=== PATIENT | female | born 1975 | race American Indian/Alaskan Native ===

== ENCOUNTER 2017-05-01 18:04 | Emergency (ER) | payer BC ==
[2017-05-01 19:15] LABS: Basophils % (Auto) 0.3 % (0.0-1.8); Eosinophils % (Auto) 0.8 % (0.0-4.3); Hemoglobin 12.4 gm/dl (10.1-14.3); Mean Corpuscular HGB Conc 34 % (30-34); Mean Corpuscular Hemoglobin 32 pg (28-32); Mean Corpuscular Volume 96 fl (79-97); Platelet Count 245 K/mm3 (140-440); Red Blood Count 3.85 M/mm3 (3.65-5.03); Red Cell Distribution Width 13.4 % (13.2-15.2); White Blood Count 5.6 K/mm3 (4.5-11.0)
[2017-05-01 19:32] LABS: BUN/Creatinine Ratio 14.28; Blood Urea Nitrogen 10 mg/dL (7-17); Calcium 8.9 mg/dL (8.4-10.2); Carbon Dioxide 23 mmol/L (22-30); Chloride 99.1 mmol/L (98-107); Glucose 82 mg/dL (65-100); Potassium 3.7 mmol/L (3.6-5.0); Sodium 136 mmol/L (137-145)
[2017-05-01 19:33] LABS: Anion Gap 18 mmol/L
[2017-05-02] MEDS ORDERED: TYLENOL PO ONE (03:13)
[2017-05-02] MEDS ORDERED: TYLENOL ONE (03:18)
[2017-05-02 05:39] VITALS: BP 111/56
--- NOTE | 2017-05-02 06:16 | Emergency Department Report ---
ED General Adult HPI - General Chief complaint: Fever Stated complaint: COUGH,CHILLS/BODY ACHES Time Seen by Provider: 05/02/17 06:14 Source: patient, RN notes reviewed Mode of arrival: Ambulatory Limitations: No Limitations - History of Present Illness Initial comments: This is a 41-year-old female who was previously unknown to this provider. She has a history of tobacco consumption, does not have a local primary care doctor , and reports that she is not . She presents to the ER with cough, mucus production, generalized body aches for the past 2 weeks, she reports his symptoms have been present since April 13. No recent travel, no recent antibiotic use, positive sick contacts at home and her son, and in family members. No abdominal pain, no irritative or obstructive urinary symptoms. -: Gradual Location: back, left, right, upper extremity, lower extremity Severity scale (0 -10): 10 Quality: aching Consistency: intermittent Improves with: none Worsens with: none Associated Symptoms: cough, fever/chills, loss of appetite, malaise - Related Data Previous Rx's Medication Instructions Recorded Last Taken Type Albuterol Sulfate [Proair 90 mcg IH Q4HR PRN #2 aer.pow.ba 05/02/17 Unknown Rx Respiclick] Azithromycin [Zithromax TAB] 250 mg PO QDAY #6 tablet 05/02/17 Unknown Rx Benzonatate [Tessalon Perles] 100 mg PO Q8HR PRN #30 capsule 05/02/17 Unknown Rx Ibuprofen [Motrin] 600 mg PO Q8H PRN #30 tablet 05/02/17 Unknown Rx Allergies Allergy/AdvReac Type Severity Reaction Status Date / Time No Known Allergies Allergy Verified 05/01/17 18:39 ED Review of Systems ROS: Stated complaint: COUGH,CHILLS/BODY ACHES Other details as noted in HPI Constitutional: fever, malaise Eyes: denies: vision change ENT: denies: epistaxis Respiratory: cough Cardiovascular: denies: palpitations Gastrointestinal: denies: vomiting Genitourinary: denies: dysuria Musculoskeletal: back pain, arthralgia, myalgia Skin: denies: lesions Neurological: weakness ED Past Medical Hx - Past Medical History Previous Medical History?: No - Surgical History Past Surgical History?: Yes Additional Surgical History: C sections - Social History Smoking Status: Current Every Day Smoker Substance Use Type: None - Medications Home Medications: Home Medications Medication Instructions Recorded Confirmed Last Taken Type Albuterol Sulfate [Proair 90 mcg IH Q4HR PRN #2 aer.pow.ba 05/02/17 Unknown Rx Respiclick] Azithromycin [Zithromax TAB] 250 mg PO QDAY #6 tablet 05/02/17 Unknown Rx Benzonatate [Tessalon Perles] 100 mg PO Q8HR PRN #30 capsule 05/02/17 Unknown Rx Ibuprofen [Motrin] 600 mg PO Q8H PRN #30 tablet 05/02/17 Unknown Rx ED Physical Exam - General Limitations: No Limitations General appearance: alert, in no apparent distress - Head Head exam: Present: atraumatic, normocephalic - Eye Eye exam: Present: normal appearance, EOMI. Absent: nystagmus - ENT ENT exam: Present: normal exam, normal orophraynx, mucous membranes moist, TM's normal bilaterally, normal external ear exam - Neck Neck exam: Present: normal inspection, full ROM. Absent: tenderness, meningismus - Respiratory Respiratory exam: Present: normal lung sounds bilaterally, rhonchi. Absent: respiratory distress, wheezes, rales, chest wall tenderness - Cardiovascular Cardiovascular Exam: Present: regular rate, normal rhythm, normal heart sounds. Absent: bradycardia, tachycardia, irregular rhythm, systolic murmur, diastolic murmur, rubs, gallop - GI/Abdominal GI/Abdominal exam: Present: soft, normal bowel sounds. Absent: distended, tenderness, guarding, rebound, rigid, pulsatile mass - Extremities Exam Extremities exam: Present: normal inspection, full ROM, normal capillary refill. Absent: tenderness, pedal edema, joint swelling, calf tenderness - Back Exam Back exam: Present: normal inspection, full ROM. Absent: tenderness, CVA tenderness (R), CVA tenderness (L), muscle spasm, paraspinal tenderness, vertebral tenderness - Neurological Exam Neurological exam: Present: alert, oriented X3, normal gait, other (Extraocular movements intact. Tongue midline. No facial droop. Facial sensation intact to light touch in the V1, V2, V3 distribution bilaterally. 5 and 5 strength in 4 extremities.. Sensation is intact to light touch in 4 extremities.). Absent : motor sensory deficit - Psychiatric Psychiatric exam: Present: normal affect, normal mood - Skin Skin exam: Present: warm, dry, intact, normal color. Absent: rash ED Course Vital Signs 05/01/17 05/02/17 05/02/17 18:39 00:27 03:17 Temperature 101.3 F H 99.8 F H 101.6 F H Pulse Rate 97 H 103 H 104 H Pulse Rate [ Anterior Bilateral Throughout] Respiratory 18 18 16 Rate Respiratory Rate [Anterior Bilateral Throughout] Blood Pressure 122/63 Blood Pressure 114/59 104/41 [Left] O2 Sat by Pulse 100 99 95 Oximetry 05/02/17 05/02/17 05/02/17 03:18 05:39 08:47 Temperature 100.1 F H Pulse Rate 94 H Pulse Rate [ 100 H Anterior Bilateral Throughout] Respiratory 16 18 Rate Respiratory 18 Rate [Anterior Bilateral Throughout] Blood Pressure Blood Pressure 111/56 [Left] O2 Sat by Pulse 94 Oximetry 05/02/17 05/02/17 08:58 08:59 Temperature 100.7 F H Pulse Rate Pulse Rate [ 102 H Anterior Bilateral Throughout] Respiratory Rate Respiratory 18 Rate [Anterior Bilateral Throughout] Blood Pressure Blood Pressure [Left] O2 Sat by Pulse Oximetry ED Medical Decision Making - Lab Data Result diagrams: 05/01/17 19:00 05/01/17 19:00 Vital Signs 05/01/17 05/02/17 05/02/17 18:39 00:27 03:17 Temperature 101.3 F H 99.8 F H 101.6 F H Pulse Rate 97 H 103 H 104 H Respiratory 18 18 16 Rate Blood Pressure 122/63 Blood Pressure 114/59 104/41 [Left] O2 Sat by Pulse 100 99 95 Oximetry 05/02/17 05/02/17 03:18 05:39 Temperature 100.1 F H Pulse Rate 94 H Respiratory 16 18 Rate Blood Pressure Blood Pressure 111/56 [Left] O2 Sat by Pulse 94 Oximetry Lab Results 05/01/17 05/01/17 05/02/17 Range/Units 19:00 19:00 06:57 WBC 5.6 (4.5-11.0) K/mm3 RBC 3.85 (3.65-5.03) M/mm3 Hgb 12.4 (10.1-14.3) gm/dl Hct 37.0 (30.3-42.9) % MCV 96 (79-97) fl MCH 32 (28-32) pg MCHC 34 (30-34) % RDW 13.4 (13.2-15.2) % Plt Count 245 (140-440) K/mm3 Lymph % (Auto) 7.2 L (13.4-35.0) % [place] % (Auto) 11.5 H (0.0-7.3) % Eos % (Auto) 0.8 (0.0-4.3) % Baso % (Auto) 0.3 (0.0-1.8) % Lymph # 0.4 L (1.2-5.4) K/mm3 [place] # 0.6 (0.0-0.8) K/mm3 Eos # 0.0 (0.0-0.4) K/mm3 Baso # 0.0 (0.0-0.1) K/mm3 Seg Neutrophils % 80.2 H (40.0-70.0) % Seg Neutrophils # 4.5 (1.8-7.7) K/mm3 Sodium 136 L (137-145) mmol/L Potassium 3.7 (3.6-5.0) mmol/L Chloride 99.1 (98-107) mmol/L Carbon Dioxide 23 (22-30) mmol/L Anion Gap 18 mmol/L BUN 10 (7-17) mg/dL Creatinine 0.7 (0.7-1.2) mg/dL Estimated GFR > 60 ml/min BUN/Creatinine Ratio 14.28 % Glucose 82 (65-100) mg/dL Calcium 8.9 (8.4-10.2) mg/dL Ur Reducing Substances Not Reportable Urine Bilirubin Neg (Negative) Urine Ictotest Not Reportable Urine RBC (Auto) 1.0 (0.0-6.0) /HPF U Epithel Cells (Auto) 4.0 (0-13.0) /HPF Urine HCG, Qual Negative (Negative) - Radiology Data Radiology results: report reviewed, image reviewed X-ray the chest is negative for acute disease - Medical Decision Making Differential diagnosis: Pneumonia, bronchitis, influenza-like illness Assessment and plan: 41-year-old female with more than 3 days of cough, body aches, influenza-like illness. Given that symptoms present for greater than 72 hours, patient is not a Tamiflu candidate. Has a fever, and subsequent low-grade temperatures, otherwise her physical exam is unremarkable, she is tolerating liquid feeds, she is not irritable or lethargic, and she appears quite comfortable. She is encouraged to discontinue tobacco consumption, she is treated symptomatically, will be treated empirically with azithromycin given a few weeks of symptoms, fever, albuterol, as needed ibuprofen. Instructed to follow up with local primary care, return precautions reviewed. Critical care attestation.: If time is entered above; I have spent that time in minutes in the direct care of this critically ill patient, excluding procedure time. ED Disposition Clinical Impression: Influenza-like illness Disposition: DC-01 TO HOME OR SELFCARE Is pt being admited?: No Does the pt Need Aspirin: No Condition: Undetermined Instructions: Acute Bronchitis (ED) Additional Instructions: Urine cultures were sent today. Results will be available in the next 3-5 days. Have a primary care doctor contact the medical records department to obtain culture results. Follow up with any of the listed primary care providers within the next 5-7 days. Take the medications as directed, and I highly recommend tobacco consumption be discontinued. This is most likely a significant extremity factor to your symptoms. Return to the ER right away with persistent fever, projectile vomiting, lethargy, irritability, inability to tolerate liquid feeds, confusion. Symptoms most likely coming from cold/ cough/bronchitis, the symptoms may last 4-6 weeks. Tobacco consumption will prolong duration of symptoms. Prescriptions: Albuterol Sulfate [Proair Respiclick] 90 mcg IH Q4HR PRN #2 aer.pow.ba PRN Reason: Wheezing Azithromycin [Zithromax TAB] 250 mg PO QDAY #6 tablet Benzonatate [Tessalon Perles] 100 mg PO Q8HR PRN #30 capsule PRN Reason: Cough Ibuprofen [Motrin] 600 mg PO Q8H PRN #30 tablet PRN Reason: Pain Referrals: PRIMARY CAREMD [Primary Care Provider] - 3-5 Days NANCY BLACKWELL MD [Staff Physician] - 3-5 Days [facility] [Provider Group] - 3-5 Days Forms: Work/School Release Form(ED)
--- NOTE | 2017-05-02 06:39 | XRay Report ---
FINAL REPORT EXAM: XR CHEST ROUTINE 2V HISTORY: shortness of breath TECHNIQUE: PA and lateral chest radiographs PRIORS: None. FINDINGS: No mediastinal shift. Cardiac silhouette is not enlarged. No pneumothorax, effusion, or focal pulmonary opacity. No acute skeletal finding. IMPRESSION: No focal pulmonary opacity.
[2017-05-02 08:10] LABS: Bacteria,Urine 3+ /HPF (Negative); Bilirubin,Urine NEG (Negative); Blood,Urine NEG (Negative); Ketones,Urine NEG (Negative); Leukocyte Esterase,Urine TR (Negative); Nitrite,Urine NEG (Negative); Protein,Urine <15 mg/dL mg/dL (Negative); Urobilinogen,Urine < 2.0 mg/dL (<2.0)
[2017-05-02] MEDS ORDERED: MOTRIN PO ONE (08:15)
[2017-05-02] MEDS ORDERED: PROVENTIL IH ONE (08:15)
== END 2017-05-02 08:59 | disposition home or self-care (01) ==
LOC: ED 18:04
DX: J11.1 Influenza due to unidentified influenza virus with other respiratory manifestations (principal); F17.200 Nicotine dependence, unspecified, uncomplicated
CPT/HCPCS: 36415; 71020; 80048; 81001; 81025; 85025; 87086; 94640